=== PATIENT | female | born 1960 | race American Indian/Alaskan Native ===

== ENCOUNTER 2018-01-12 23:44 | Emergency (ER) | payer OTHER ==
[2018-01-13 01:09] VITALS: BP 154/92
[2018-01-13] MEDS ORDERED: ASPIRIN PO ONE (01:10)
[2018-01-13 01:29] LABS: Basophils # (Auto) 0.1 K/mm3 (0.0-0.1); Basophils % (Auto) 1.1 % (0.0-1.8); Eosinophils # (Auto) 0.2 K/mm3 (0.0-0.4); Eosinophils % (Auto) 4.1 % (0.0-4.3); Hematocrit 39.5 % (30.3-42.9); Hemoglobin 13.3 gm/dl (10.1-14.3); Lymphocytes # (Auto) 1.9 K/mm3 (1.2-5.4); Lymphocytes % (Auto) 32.8 % (13.4-35.0); Mean Corpuscular HGB Conc 34 % (30-34); Mean Corpuscular Hemoglobin 30 pg (28-32); Mean Corpuscular Volume 89 fl (79-97); Monocytes # (Auto) 0.6 K/mm3 (0.0-0.8); Monocytes % (Auto) 10.5 % (0.0-7.3); Red Blood Count 4.46 M/mm3 (3.65-5.03); Red Cell Distribution Width 14.5 % (13.2-15.2)
[2018-01-13 01:44] LABS: BUN/Creatinine Ratio 16; Blood Urea Nitrogen 13 mg/dL (7-17); Calcium 9.3 mg/dL (8.4-10.2); Hemolysis Index 92
[2018-01-13 02:04] LABS: Bilirubin,Urine NEG (Negative); Blood,Urine NEG (Negative); Color,Urine Straw (Yellow); Protein,Urine <15 mg/dL mg/dL (Negative); Urobilinogen,Urine < 2.0 mg/dL (<2.0)
[2018-01-13 02:20] LABS: Platelet Count 211 K/mm3 (140-440)
== END 2018-01-13 02:15 | disposition left against medical advice (07) ==
LOC: ED 23:44
DX: N64.4 Mastodynia (principal); Z53.21 Procedure and treatment not carried out due to patient leaving prior to being seen by health care provider
CPT/HCPCS: 36415; 80048; 81001; 84484; 85025; 93005; 93010

== ENCOUNTER 2018-01-18 03:32 | Emergency (ER) | payer OTHER ==
--- NOTE | 2018-01-18 04:39 | XRay Report ---
FINAL REPORT PROCEDURE: XR CHEST ROUTINE 2V TECHNIQUE: PA and lateral chest radiographs were obtained. CPT 77902 HISTORY: Shortness of breath COMPARISON: No prior studies are available for comparison. FINDINGS: Heart: Normal. Mediastinum/Vessels: Normal. Lungs/Pleural space: Minimal atelectasis left lower lung. No effusion or pneumothorax. Bony thorax: No acute osseous abnormality. Other: IMPRESSION: Minimal atelectasis left lower lobe.
[2018-01-18 05:06] LABS: Basophils % (Auto) 0.9 % (0.0-1.8); Eosinophils # (Auto) 0.3 K/mm3 (0.0-0.4); Eosinophils % (Auto) 5.9 % (0.0-4.3); Hematocrit 40.5 % (30.3-42.9); Hemoglobin 13.2 gm/dl (10.1-14.3); Lymphocytes # (Auto) 1.5 K/mm3 (1.2-5.4); Lymphocytes % (Auto) 30.7 % (13.4-35.0); Mean Corpuscular HGB Conc 33 % (30-34); Mean Corpuscular Hemoglobin 29 pg (28-32); Mean Corpuscular Volume 89 fl (79-97); Monocytes # (Auto) 0.5 K/mm3 (0.0-0.8); Monocytes % (Auto) 10.8 % (0.0-7.3); Platelet Count 217 K/mm3 (140-440); Red Blood Count 4.53 M/mm3 (3.65-5.03); Red Cell Distribution Width 14.6 % (13.2-15.2)
[2018-01-18 05:18] LABS: BUN/Creatinine Ratio 14; Blood Urea Nitrogen 13 mg/dL (7-17); Hemolysis Index 4
--- NOTE | 2018-01-18 11:27 | Emergency Department Report ---
ED Shortness of Breath HPI - General Chief Complaint: Dyspnea/Respdistress Stated Complaint: SOB Time Seen by Provider: 01/18/18 10:13 Source: patient Mode of arrival: Ambulatory Limitations: No Limitations - History of Present Illness Initial Comments: Patient is a 58-year-old female who presented with shortness of breath gradually worsening for several months. Patient states she has sleep apnea but is not O CPAP. She states that shortness of breath is been slightly worse the last 3 days to the point where she is having a difficult time sleeping. Patient states that she has had no fever or cough. Patient does state that she has some mild chest pressure at times. This pressure is mostly when lying flat and sleep. Patient denies having exertional chest pain or any pleuritic chest pain at this time. MD Complaint: shortness of breath Pain Scale: 2 Consistency: constant Improves With: nothing Worsens With: lying flat - Related Data Home Medications Medication Instructions Recorded Confirmed Last Taken Ferrous Gluconate [Iron 236 MG tab] 325 mg PO DAILY 10/22/14 10/22/14 10/22/14 Previous Rx's Medication Instructions Recorded Last Taken Type Atenolol [Tenormin] 25 mg PO QDAY #30 tablet 10/23/14 Unknown Rx Lisinopril [Zestril TAB] 20 mg PO BID #60 tablet 10/23/14 Unknown Rx Spironolactone 25 mg PO DAILY #30 tablet 10/23/14 Unknown Rx ALBUTEROL Inhaler [ProAir HFA 2 puff IH QID PRN #1 inhalation 01/18/18 Unknown Rx Inhaler] Allergies Allergy/AdvReac Type Severity Reaction Status Date / Time No Known Allergies Allergy Unverified 10/22/14 07:17 ED Review of Systems ROS: Stated complaint: SOB Other details as noted in HPI Comment: All other systems reviewed and negative ED Past Medical Hx - Past Medical History Previous Medical History?: Yes Hx Hypertension: Yes Hx Psychiatric Treatment: Yes (anxiety, depression) Additional medical history: Anemia, h/o untreated obstructive sleep apnea - Surgical History Past Surgical History?: Yes Additional Surgical History: C-Sec x 2 - Social History Smoking Status: Never Smoker Substance Use Type: None - Medications Home Medications: Home Medications Medication Instructions Recorded Confirmed Last Taken Type Ferrous Gluconate [Iron 236 MG tab] 325 mg PO DAILY 10/22/14 10/22/14 10/22/14 History Atenolol [Tenormin] 25 mg PO QDAY #30 tablet 10/23/14 Unknown Rx Lisinopril [Zestril TAB] 20 mg PO BID #60 tablet 10/23/14 Unknown Rx Spironolactone 25 mg PO DAILY #30 tablet 10/23/14 Unknown Rx ALBUTEROL Inhaler [ProAir HFA 2 puff IH QID PRN #1 inhalation 01/18/18 Unknown Rx Inhaler] ED Physical Exam - General Limitations: No Limitations General appearance: alert, in no apparent distress - Head Head exam: Present: atraumatic, normocephalic - Eye Eye exam: Present: normal appearance - ENT ENT exam: Present: mucous membranes moist - Neck Neck exam: Present: normal inspection - Respiratory Respiratory exam: Present: normal lung sounds bilaterally. Absent: respiratory distress - Cardiovascular Cardiovascular Exam: Present: regular rate, normal rhythm. Absent: systolic murmur, diastolic murmur, rubs, gallop - GI/Abdominal GI/Abdominal exam: Present: soft, normal bowel sounds - Extremities Exam Extremities exam: Present: normal inspection - Back Exam Back exam: Present: normal inspection - Neurological Exam Neurological exam: Present: alert, oriented X3 - Psychiatric Psychiatric exam: Present: normal affect, normal mood - Skin Skin exam: Present: warm, dry, intact, normal color. Absent: rash ED Course Vital Signs 01/18/18 01/18/18 01/18/18 03:34 03:58 10:16 Temperature 98.1 F 98.1 F Pulse Rate 67 67 Respiratory 16 18 18 Rate Blood Pressure 154/95 154/95 O2 Sat by Pulse 99 99 100 Oximetry ED Medical Decision Making - Lab Data Result diagrams: 01/18/18 04:54 01/18/18 04:54 Lab Results 01/18/18 01/18/18 01/18/18 Range/Units 04:54 04:54 10:37 WBC 5.0 (4.5-11.0) K/mm3 RBC 4.53 (3.65-5.03) M/mm3 Hgb 13.2 (10.1-14.3) gm/dl Hct 40.5 (30.3-42.9) % MCV 89 (79-97) fl MCH 29 (28-32) pg MCHC 33 (30-34) % RDW 14.6 (13.2-15.2) % Plt Count 217 (140-440) K/mm3 Lymph % (Auto) 30.7 (13.4-35.0) % Taylor % (Auto) 10.8 H (0.0-7.3) % Eos % (Auto) 5.9 H (0.0-4.3) % Baso % (Auto) 0.9 (0.0-1.8) % Lymph # 1.5 (1.2-5.4) K/mm3 Taylor # 0.5 (0.0-0.8) K/mm3 Eos # 0.3 (0.0-0.4) K/mm3 Baso # 0.0 (0.0-0.1) K/mm3 Seg Neutrophils % 51.7 (40.0-70.0) % Seg Neutrophils # 2.6 (1.8-7.7) K/mm3 D-Dimer < 135.00 (0-234) ng/mlDDU Sodium 141 (137-145) mmol/L Potassium 3.9 (3.6-5.0) mmol/L Chloride 101.7 (98-107) mmol/L Carbon Dioxide 28 (22-30) mmol/L Anion Gap 15 mmol/L BUN 13 (7-17) mg/dL Creatinine 0.9 (0.7-1.2) mg/dL Estimated GFR > 60 ml/min BUN/Creatinine Ratio 14 % Glucose 116 H (65-100) mg/dL Calcium 9.0 (8.4-10.2) mg/dL Troponin T (0.00-0.029) ng/mL 01/18/18 Range/Units 10:37 WBC (4.5-11.0) K/mm3 RBC (3.65-5.03) M/mm3 Hgb (10.1-14.3) gm/dl Hct (30.3-42.9) % MCV (79-97) fl MCH (28-32) pg MCHC (30-34) % RDW (13.2-15.2) % Plt Count (140-440) K/mm3 Lymph % (Auto) (13.4-35.0) % Taylor % (Auto) (0.0-7.3) % Eos % (Auto) (0.0-4.3) % Baso % (Auto) (0.0-1.8) % Lymph # (1.2-5.4) K/mm3 Taylor # (0.0-0.8) K/mm3 Eos # (0.0-0.4) K/mm3 Baso # (0.0-0.1) K/mm3 Seg Neutrophils % (40.0-70.0) % Seg Neutrophils # (1.8-7.7) K/mm3 D-Dimer (0-234) ng/mlDDU Sodium (137-145) mmol/L Potassium (3.6-5.0) mmol/L Chloride (98-107) mmol/L Carbon Dioxide (22-30) mmol/L Anion Gap mmol/L BUN (7-17) mg/dL Creatinine (0.7-1.2) mg/dL Estimated GFR ml/min BUN/Creatinine Ratio % Glucose (65-100) mg/dL Calcium (8.4-10.2) mg/dL Troponin T < 0.010 (0.00-0.029) ng/mL - EKG Data Interpretation: other (EKG shows sinus rhythm rate of 69 normal axis normal intervals is no ST segment elevation or depression time interpretation is 4 AM) - Radiology Data Radiology results: report reviewed Chest x-ray shows some right lower lobe atelectasis - Medical Decision Making Patient is a 58-year-old [place] female presenting with some shortness of breath mostly when lying flat at night. Patient does have a history of sleep apnea. Patient's d-dimer troponins EKG laboratory studies within normal limits. Chest x-ray does show some slight atelectasis but no obvious infiltrate. Patient is not coughing or having fever and this is not interpreted as an atypical pneumonia. Patient will be discharged home with albuterol inhaler as well as follow with pulmonary. Critical care attestation.: If time is entered above; I have spent that time in minutes in the direct care of this critically ill patient, excluding procedure time. ED Disposition Clinical Impression: Dyspnea Qualifiers: Dyspnea type: shortness of breath Qualified Code(s): R06.02 - Shortness of breath; R06.00 - Dyspnea, unspecified; R06.01 - Orthopnea Sleep apnea Qualifiers: Sleep apnea type: unspecified type Qualified Code(s): G47.30 - Sleep apnea, unspecified Disposition: DC-01 TO HOME OR SELFCARE Is pt being admited?: No Does the pt Need Aspirin: No Condition: Stable Prescriptions: ALBUTEROL Inhaler [ProAir HFA Inhaler] 2 puff IH QID PRN #1 inhalation PRN Reason: Shortness Of Breath Referrals: PIYUSH CHRISTIE MD [Staff Physician] - 3-5 Days
[2018-01-18 11:43] VITALS: BP 154/80
== END 2018-01-18 11:44 | disposition home or self-care (01) ==
LOC: ED 03:32
DX: R06.00 Dyspnea, unspecified (principal); G47.30 Sleep apnea, unspecified; I10 Essential (primary) hypertension
CPT/HCPCS: 36415; 71046; 80048; 84484; 85025; 85379; 93005; 93010; 99284

== ENCOUNTER 2018-01-24 15:02 | Outpatient (CLI) | payer OTHER ==
--- NOTE | 2018-01-25 11:29 | Mammography Report ---
RIGHT DIGITAL DIAGNOSTIC MAMMOGRAM and RIGHT BREAST ULTRASOUND: 01/24/18 15:00:00 CLINICAL: Recall for asymmetry. COMPARISON:08/26/17screening FINDINGS: Lateralmedial and spot magnification MLO views were performed. Partial effacement of asymmetry on the spot view. The lateral view is negative. Ultrasound of the right breast (including all four quadrants and the retroareolar area) was performed and demonstrated normal fibroglandular and fatty structures. No mass, cyst or shadowing. IMPRESSION: Probably benign right asymmetry. BI-RADS CATEGORY: 3 -- Probably Benign RECOMMENDATION: 6 month followup right mammogram. ACR BI-RADS MAMMOGRAPHIC CODES: 0 = Needs additional imaging evaluation; 1 = Negative; 2 = Benign; 3 = Probably benign; 4 = Suspicious; 5 = Malignant; 6 = Known biopsy-proven malignancy COMMENT: 1. Dense breast tissue, i.e., adenosis, fibrocystic changes, etc., may obscure an underlying neoplasm. 2. Approximately 10% of cancers are not detected with mammography. 3. A negative mammography report should not delay biopsy if a clinically suspicious mass is present. COMMENT: Patient follow-up letters are generated via our [employer] application.
== END 2018-01-24 15:03 | disposition home or self-care (01) ==
LOC: MAMMO 15:02
PROVIDERS: ATTEND Family Medicine
DX: R92.8 Other abnormal and inconclusive findings on diagnostic imaging of breast (principal)

== ENCOUNTER 2018-02-10 09:49 | Day surgery (SDC) | payer OTHER ==
[2018-02-10] MEDS ORDERED: NACL 0.9% 1000 ML 1,000 ML IV SCH (11:00)
[2018-02-10] MEDS ORDERED: WATER FOR IRRIG STERILE IR ONE (12:48)
[2018-02-10] MEDS ORDERED: DIPRIVAN 10 MG/ML IV ONE ×3 (12:51→13:22)
--- NOTE | 2018-02-10 12:55 | Anesthesia Consultation ---
Anesthesia Consult and Med Hx Date of service: 02/10/18 - Airway Anesthetic Teeth Evaluation: Poor (some missing teeth) ROM Head & Neck: Adequate Mental/Hyoid Distance: Adequate Mallampati Class: Class III Intubation Access Assessment: Possibly Difficult - Pre-Operative Health Status ASA Pre-Surgery Classification: ASA3 Proposed Anesthetic Plan: MAC - Pulmonary Hx Respiratory Symptoms: Yes (chronic bronchitis) Hx Sleep Apnea: Yes - Cardiovascular System Hx Hypertension: Yes Hx Coronary Artery Disease: No (elevated cholestetol) - Central Nervous System Hx Psychiatric Problems: Yes (depression) - Hematic Hx Anemia: Yes - Other Systems Hx Obesity: Yes (BMI 38.4)
--- NOTE | 2018-02-10 12:56 | Anesthesia Day of Surgery ---
Anesthesia Day of Surgery - Day of Surgery Patient Examined: Yes Patient H&P Reviewed: Yes Patient is NPO: Yes Beta Blockers: Yes
--- NOTE | 2018-02-10 13:55 | Post Anesthesia Evaluation ---
- Post Anesthesia Evaluation Patient Participated: Yes Airway Patent: Yes Stable Respiratory Function: Yes Nausea/Vomiting: No Temp > 96.8F: Yes Pain Manageable: Yes Adequeate Hydration: Yes Anesthesia Complications: No
[2018-02-10 14:35] VITALS: BP 142/99
--- NOTE | 2018-02-10 15:52 | Operative Report ---
Operative Report Operative Report: Date of procedure: 02/10/2018 Procedure: Colonoscopy. Attending physician: Hugo Stone MD [employer] Application Administrator: Hugo Stone MD Indication: Patient is a 58-year-old female who presents for screening colonoscopy. The colonoscopy serves to evaluate patient for colorectal cancer screening. Consent: Informed consent was obtained after advising the patient and family regarding nature of this procedure, its indications, potential benefits as well as possible complications including but not limited to bleeding perforation and adverse reaction to medication, infection as well as other cardiopulmonary complications. An informed written and verbal consent was then obtained after due opportunity was provided for questions and answers. Monitoring: Patient was monitored continuously with pulse oximetry and electrocardiographic recordings as well as blood pressure recordings. Vital signs remained stable throughout this procedure with no untoward events. Preoperative assessment: Patient was assessed immediately prior to this procedure for capacity to tolerate monitored anesthesia care and moderate sedation as well as general anesthesia. Patient's ASA classification is 2, Mallampati class is 2, Hyomental distance is 3. Instrument: studentSNinon video colonoscope Medications: Propofol given intravenously in divided doses. For details please refer to anesthesia records. Description of procedure: Patient was placed in the left lateral decubitus position after achieving sedation, a digital rectal examination was performed following which the colonoscope was introduced into the anal verge and advanced to the cecum which was identified by the cecal valve, the appendiceal orifice, as well as by the cecal strap and direct transillumination. The colonoscope was subsequently withdrawn with careful inspection of all mucosal surfaces. Patient tolerated this procedure well and was subsequently taken to the recovery room. The following findings were noted. Findings: Patient had diminutive diverticula involving the sigmoid and descending colon. The rest of the colon to the cecum was normal. On the retroflex view at the anal verge, patient had prominent internal hemorrhoids. Impression: Mild diverticulosis. Prominent Internal hemorrhoids. Plan: High-fiber diet. Repeat colonoscopy in 10 years. Patient will likely benefit from hemorrhoidal band ligation
--- NOTE | 2018-02-10 15:54 | Discharge Summary ---
Short Stay Discharge Plan Activity: advance as tolerated Weight Bearing Status: Weight Bear as Tolerated Diet: regular Additional Instructions: Post Sedation D/C Instructions When you return home you may resume your regular diet unless otherwise directed. -Go directly home from the hospital and rest quietly. You may resume normal activities tomorrow. -Do NOT drive, return to work, operate any machinery or make any important personal or business decisions today. -Do NOT drink any alcohol or take nerve or sleeping drugs. They add to the effects of the medicine still present in your body. Follow up with: KODAK BURKETT MD [Primary Care Provider] - 7 Days
== END 2018-02-10 09:50 | disposition home or self-care (01) ==
LOC: GIO 09:49
PROVIDERS: ATTEND Internal Medicine Gastroenterology
DX: D64.9 Anemia, unspecified (principal); K57.30 Diverticulosis of large intestine without perforation or abscess without bleeding; K64.8 Other hemorrhoids; Z68.38 Body mass index [BMI] 38.0-38.9, adult; F32.9 Major depressive disorder, single episode, unspecified; J42 Unspecified chronic bronchitis; F41.9 Anxiety disorder, unspecified; M19.90 Unspecified osteoarthritis, unspecified site; I10 Essential (primary) hypertension; E66.9 Obesity, unspecified
CPT/HCPCS: 45378; J2704; J7030

== ENCOUNTER 2018-07-31 17:16 | Emergency (ER) | payer OTHER ==
[2018-07-31 17:32] VITALS: BP 145/93
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
== END 2018-07-31 20:21 | disposition home or self-care (01) ==
LOC: ED 17:16
DX: M25.562 Pain in left knee (principal); M54.5 Low back pain; I10 Essential (primary) hypertension; K21.9 Gastro-esophageal reflux disease without esophagitis; F41.9 Anxiety disorder, unspecified; F32.9 Major depressive disorder, single episode, unspecified; Z86.2 Personal history of diseases of the blood and blood-forming organs and certain disorders involving the immune mechanism; G47.30 Sleep apnea, unspecified; V89.2XXA Person injured in unspecified motor-vehicle accident, traffic, initial encounter; Y93.89 Activity, other specified; Y92.488 Other paved roadways as the place of occurrence of the external cause; Y99.8 Other external cause status
CPT/HCPCS: 99282

== ENCOUNTER 2018-08-17 14:01 | Outpatient (CLI) | payer OTHER ==
--- NOTE | 2018-08-17 14:30 | Mammography Report ---
Right mammogram: Compared to 08/26/17. CAD study utilized. History: Followup of asymmetric density right breast which was negative on sonogram. Findings: There is very faint density again identified at the right breast corresponding to the density seen in the previous study without significant interval change. No microcalcification. Impression: Probably benign density. 6 month followup right mammogram recommended.
== END 2018-08-17 14:02 | disposition home or self-care (01) ==
LOC: MAMMO 14:01
PROVIDERS: ATTEND Family Medicine
DX: R92.8 Other abnormal and inconclusive findings on diagnostic imaging of breast (principal); I10 Essential (primary) hypertension; K21.9 Gastro-esophageal reflux disease without esophagitis; E78.00 Pure hypercholesterolemia, unspecified; I25.10 Atherosclerotic heart disease of native coronary artery without angina pectoris

== ENCOUNTER 2018-12-03 13:53 | Emergency (ER) | payer OTHER ==
--- NOTE | 2018-12-03 14:06 | Emergency Department Report ---
Blank Doc - Documentation Documentation: This is a 58-year-old female that presents with midsternum chest pain with pro ductive cough. Denies any radiation of chest pain. Denies any SOB. Patient does have history of GERD This initial assessment diagnostic orders/clinical plan/treatment(s) is/are subject to change based on patient's health status, clinical progression and re- assessment by fellow clinical providers in the ED. Further treatment and workup at subsequent clinical providers discretion. Patient/guardians urged not to elope from ED s their condition may be serious if not clinically assessed and managed. Initial orders include: 1-EKG 2- CXR 3- Labs
[2018-12-03 14:44] LABS: Basophils % (Auto) 0.9 % (0.0-1.8); Eosinophils # (Auto) 0.2 K/mm3 (0.0-0.4); Eosinophils % (Auto) 4.5 % (0.0-4.3); Hematocrit 40.3 % (30.3-42.9); Hemoglobin 13.7 gm/dl (10.1-14.3); Lymphocytes # (Auto) 1.4 K/mm3 (1.2-5.4); Lymphocytes % (Auto) 28.1 % (13.4-35.0); Mean Corpuscular HGB Conc 34 % (30-34); Mean Corpuscular Volume 89 fl (79-97); Monocytes # (Auto) 0.6 K/mm3 (0.0-0.8); Monocytes % (Auto) 11.8 % (0.0-7.3); Platelet Count 240 K/mm3 (140-440); Red Blood Count 4.54 M/mm3 (3.65-5.03); Red Cell Distribution Width 15.1 % (13.2-15.2)
--- NOTE | 2018-12-03 14:44 | XRay Report ---
FINAL REPORT EXAM: XRAY CHEST 2 VIEWS HISTORY: COUGH/CP TECHNIQUE: Frontal and lateral chest radiographs. PRIORS: 01/18/2018. FINDINGS: The cardiomediastinal silhouette is normal. No focal consolidation. Unchanged mild scarring in the left lower lobe. No pleural effusion. No pneumothorax. No acute osseous abnormality. IMPRESSION: No acute cardiopulmonary process.
[2018-12-03 14:58] LABS: BUN/Creatinine Ratio 10; Blood Urea Nitrogen 11 mg/dL (7-17); Calcium 9.6 mg/dL (8.4-10.2); Hemolysis Index 13
--- NOTE | 2018-12-03 17:45 | Emergency Department Report ---
Minor Respiratory - HPI Chief Complaint: Upper Respiratory Infection Stated Complaint: CHEST PAIN Time Seen by Provider: 12/03/18 13:56 Duration: 2 weeks Pain Location: Chest (chest pain with cough), Other (body 8) Severity: severe Minor Respiratory: Yes Rhinorrhea (nasal congestion runny nose), Yes Able to Tolerate Fluids, Yes Cough (2 weeks), Yes Chest Pain (with cough and 8/10 and also body aches.), No Sore Throat, No Ear Pain, No Sick Contacts, No Hemoptysis, No Shortness of Breath, No Fever Other History: This is a 58-year-old female here reports 2 weeks of cough and she reports chest pain with coughing. She says she has a history of bronchitis and pain feels more tight and only related to cough. Denies any shortness of breath. Patient says she has a history of bronchitis. No radiation of pain. Denies any fever or chills. Pain is 8 out of 10 achy all over and she stated he can Coricidin HBP, Mucinex and Tylenol without any relief. Patient says she takes Brio at home for her bronchitis and she takes this once a day. History of asthma GERD and hypertension, anxiety, anemia and obstructive sleep apnea without any treatment. She also reports nasal congestion and runny nose which proceeded cough. ED Review of Systems ROS: Stated complaint: CHEST PAIN Other details as noted in HPI Constitutional: denies: chills, fever ENT: congestion. denies: throat pain Respiratory: cough. denies: shortness of breath, wheezing Cardiovascular: chest pain (associated with cough and). denies: palpitations, dyspnea on exertion, edema, syncope Gastrointestinal: denies: abdominal pain, nausea, vomiting (allergies and then she can screen for this on neck), hematemesis Genitourinary: denies: hematuria (6 chart) Musculoskeletal: denies: back pain, joint swelling, arthralgia, myalgia Skin: denies: rash Neurological: denies: headache, vertigo ED Past Medical Hx - Past Medical History Previous Medical History?: Yes Hx Hypertension: Yes Hx GERD: Yes Hx Psychiatric Treatment: Yes (anxiety, depression) Hx Asthma: Yes Additional medical history: Anemia, h/o untreated obstructive sleep apnea - Surgical History Past Surgical History?: Yes Additional Surgical History: C-Sec x 2 - Family History Family history: hypertension - Social History Smoking Status: Never Smoker Substance Use Type: None - Medications Home Medications: Home Medications Medication Instructions Recorded Confirmed Last Taken Type Ferrous Gluconate [Iron 236 MG tab] 325 mg PO DAILY 10/22/14 02/10/18 10/22/14 History Lisinopril [Zestril TAB] 20 mg PO BID #60 tablet 10/23/14 02/10/18 Unknown Rx Spironolactone 25 mg PO DAILY #30 tablet 10/23/14 02/10/18 Unknown Rx ALBUTEROL Inhaler (OR & NICU) 2 puff IH QID PRN #1 inhalation 01/18/18 02/10/18 Unknown Rx [ProAir HFA Inhaler] Atenolol [Tenormin] 50 mg PO QDAY 02/10/18 02/10/18 02/09/18 History Losartan Potassium 100 mg PO DAILY 02/10/18 02/10/18 02/09/18 History NIFEdipine 30 mg PO DAILY 02/10/18 02/10/18 02/09/18 History buPROPion XL 300 mg PO DAILY 02/10/18 02/10/18 02/09/18 History lamoTRIgine 25 mg PO DAILY 02/10/18 02/10/18 02/09/18 History Ibuprofen [Motrin] 600 mg PO Q8H PRN #20 tablet 09/11/18 Unknown Rx ALBUTEROL Inhaler(NF) [VENTOLIN 2 puff IH Q6H PRN 1 Days #1 inha 12/03/18 Unknown Rx Inhaler(NF)] Acetaminophen with Codeine 10 ml PO BID PRN #100 ml 12/03/18 Unknown Rx [Acetaminophen-Codeine ORAL LIQ] Amoxicillin/K Clav Tab [Augmentin 1 tab PO Q12HR #20 tab 12/03/18 Unknown Rx 875MG TAB] Cetirizine HCl [ZyrTEC] 10 mg PO QAM 14 Days #14 capsule 12/03/18 Unknown Rx Fluticasone [Flonase] 1 spray NS QDAY 14 Days #1 bottle 12/03/18 Unknown Rx predniSONE [Deltasone] 50 mg PO QDAY 3 Days #3 tab 12/03/18 Unknown Rx Minor Respiratory Exam - Exam General: Vital signs noted. No distress. Alert and acting appropriately. This is a 58-year-old female here in no acute distress. HEENT: Yes Moist Mucous Membranes (uvula midline and oral airways patent), Yes Rhinorrhea (nasal mucosa congested, erythema and clear drainage), Yes Maxillary Tenderness (tender to palpate), No Pharyngeal Erythema, No Pharyngeal Exudates, No Conjuctival Injection, No Frontal Tenderness Ear: Neither TM Bulge (bilateral TM congested), Neither TM Erythema, Neither EAC Pain, Neither EAC Discharge Neck: Yes Supple (full range of motion and no C-spine tenderness), No Adenopathy Lungs: Yes Good Air Exchange, Yes Wheezes (scattered wheezes into upper lung field), Yes Cough (congested cough), No Ronchi, No Stridor, No Labored Respirations, No Retractions, No Use of Accessory Muscles, No Other Abnormal Louise ng Sounds Heart: Yes Regular, No Murmur Abdomen: Yes Normal Bowel Sounds (normal bowel tones in all quadrants), No Tenderness (nontender to palpate in all quadrants), No Peritoneal Signs Skin: No Rash, No Edema Neurologic: Alert and oriented 3. No deficits. Musculoskeletal: Unremarkable. No cce. + 2 pulses in all extremities, no neurovascular compromise ED Course Vital Signs 12/03/18 14:05 Temperature 98.3 F Pulse Rate 78 Respiratory 20 Rate Blood Pressure 155/84 O2 Sat by Pulse 98 Oximetry - Reevaluation(s) Reevaluation #1: 12/03/18 19:04 Patient given DuoNeb 1 treatments in emergency room and her lung sounds are clear. She says she feels better and she has no chest pain. She was also started on Augmentin for sinus infection with bronchitis. Patient given Tylenol with codeine for cough. Patient is feeling better. 12/03/18 19:07 ED Medical Decision Making - Lab Data Result diagrams: 12/03/18 14:27 12/03/18 14:27 Lab Results 12/03/18 12/03/18 Range/Units 14:27 14:27 WBC 5.0 (4.5-11.0) K/mm3 RBC 4.54 (3.65-5.03) M/mm3 Hgb 13.7 (10.1-14.3) gm/dl Hct 40.3 (30.3-42.9) % MCV 89 (79-97) fl MCH 30 (28-32) pg MCHC 34 (30-34) % RDW 15.1 (13.2-15.2) % Plt Count 240 (140-440) K/mm3 Lymph % (Auto) 28.1 (13.4-35.0) % [place] % (Auto) 11.8 H (0.0-7.3) % Eos % (Auto) 4.5 H (0.0-4.3) % Baso % (Auto) 0.9 (0.0-1.8) % Lymph # 1.4 (1.2-5.4) K/mm3 [place] # 0.6 (0.0-0.8) K/mm3 Eos # 0.2 (0.0-0.4) K/mm3 Baso # 0.0 (0.0-0.1) K/mm3 Seg Neutrophils % 54.7 (40.0-70.0) % Seg Neutrophils # 2.8 (1.8-7.7) K/mm3 Sodium 141 (137-145) mmol/L Potassium 4.0 (3.6-5.0) mmol/L Chloride 101.9 (98-107) mmol/L Carbon Dioxide 29 (22-30) mmol/L Anion Gap 14 mmol/L BUN 11 (7-17) mg/dL Creatinine 1.1 (0.7-1.2) mg/dL Estimated GFR > 60 ml/min BUN/Creatinine Ratio 10 % Glucose 98 (65-100) mg/dL Calcium 9.6 (8.4-10.2) mg/dL Troponin T < 0.010 (0.00-0.029) ng/mL - EKG Data -: EKG Interpreted by Me (attending physician) EKG shows normal: sinus rhythm (sinus rhythm at 81 beats per minutes) Rate: normal - EKG Data When compared to previous EKG there are: no significant change Interpretation: no acute changes, normal EKG - Radiology Data Radiology results: report reviewed Chest x-ray two-view dictated by radiologist and report reviewed by myself and no acute cardiopulmonary findings Findings [facility] [address] [place] [address] XRay Report Signed Patient: CHRISTOPH CHAPA MR#: [id number] : 1960 Acct:[id number] Age/Sex: 58 / F ADM Date: 12/03/18 Loc: ED Attending Dr: Ordering Physician: CINDI ARCINIEGA NP Date of Service: 12/03/18 Procedure(s): XR chest routine 2V Accession Number(s): [id number] cc: CINDI ARCINIEGA NP Fluoro Time In Minutes: FINAL REPORT EXAM: XRAY CHEST 2 VIEWS HISTORY: COUGH/CP TECHNIQUE: Frontal and lateral chest radiographs. PRIORS: 01/18/2018. FINDINGS: The cardiomediastinal silhouette is normal. No focal consolidation. Unchanged mild scarring in the left lower lobe. No pleural effusion. No pneumothorax. No acute osseous abnormality. IMPRESSION: No acute cardiopulmonary process. Transcribed By: MG Dictated By: ANAI MACKEY MD Electronically Authenticated By: ANAI MACKEY MD Signed Date/Time: 12/03/181443 DD/ 42 TD/TT: 12/03/181442 - Medical Decision Making This is a 58-year-old female here with cough and congestion and chest pain with coughing for over 2 weeks. Patient evaluated by myself. Labs: CBC and chemistry within normal limits, troponin is stable Diagnostics: Chest x-ray reveals no acute cardiopulmonary processes Assessment/plan 1. Sinusitis, acute-patient started on Augmentin and will be discharged home on Augmentin, Flonase and Zyrtec. She was also given Decadron 10 mg IM and will be sent home on prednisone for 3 days. 2: Atypical chest pain from coughing-patient and EKG sinus rhythm with no acute findings and her pain has been relieved. Troponin is negative. Cardiac score is at 2 and DIANE score is at 1 whichpatient at low risk for ACS 3, acute bronchitis-Duoneb x1 dose given and lung sounds are clear after DuoNeb. Patient will be discharged home on albuterol inhaler with spacer 4. Cough: Patient given Tylenol codeine 1 dose 10 mL and will be sent home on cough medicine Patient to follow-up with her primary care physician in 2-3 days - Differential Diagnosis PNA, bronchitis, ACS, sinusitis, URI with cough and congestion Critical care attestation.: If time is entered above; I have spent that time in minutes in the direct care of this critically ill patient, excluding procedure time. ED Disposition Clinical Impression: Bronchitis, Cough in adult patient, Chest pain, atypical Sinusitis, acute Qualifiers: Sinusitis location: unspecified location Recurrence: not specified as recurrent Qualified Code(s): J01.90 - Acute sinusitis, unspecified Disposition: DC-01 TO HOME OR SELFCARE Is pt being admited?: No Does the pt Need Aspirin: No Condition: Stable Instructions: Chest Pain (ED), Chronic Bronchitis (ED), Sinusitis (ED), Acute Cough (ED) Additional Instructions: Please follow-up with your primary care physician in 2-3 days Take medication as prescribed but please do not drive or operate heavy machinery while taking Tylenol cough syrup as this medication causes drowsiness Increasing fluid intake See referral to microbiology analyst if you continue to have chest pain he will probably need to be evaluated If you chest pain returns, return to the emergency room Flush nostrils out with saline nasal wash 3 times a day Referrals: Dr. Ellsworth, microbiology analyst [Other] - 2-3 Days your, primary care physician [Other] - 2-3 Days LIN DOOLEY [Primary Care Provider] - 2-3 Days Forms: Work/School Release Form(ED)
[2018-12-03] MEDS ORDERED: DECADRON IM STA (17:52)
[2018-12-03] MEDS ORDERED: TYLENOL/CODEINE PO ONE (17:54)
[2018-12-03] MEDS ORDERED: DUONEB *Not for PRN Use IH ONE ×2 (17:56→18:09)
[2018-12-03] MEDS ORDERED: ATROVENT IH ONE (17:56)
[2018-12-03] MEDS ORDERED: AUGMENTIN 875 MG PO ONE (17:56)
[2018-12-03] MEDS ORDERED: DECADRON ONE (18:09)
[2018-12-03 20:50] VITALS: BP 164/99
== END 2018-12-03 19:40 | disposition home or self-care (01) ==
LOC: ED 13:53
DX: J45.909 Unspecified asthma, uncomplicated (principal); J01.00 Acute maxillary sinusitis, unspecified; I10 Essential (primary) hypertension; K21.9 Gastro-esophageal reflux disease without esophagitis
CPT/HCPCS: 36415; 71046; 80048; 84484; 85025; 93005; 93010; 94640; 96372; 99283; J1100

== ENCOUNTER 2021-04-24 00:30 | Emergency (ER) | payer OTHER ==
[2021-04-24 00:40] VITALS: BP 172/84
== END 2021-04-24 00:45 | disposition left against medical advice (07) ==
LOC: ED 00:30
DX: Z00.8 Encounter for other general examination (principal); Z53.21 Procedure and treatment not carried out due to patient leaving prior to being seen by health care provider